=== PATIENT | female | born 1960 | race Two or more races ===

== ENCOUNTER 2021-07-04 19:50 | Emergency (ER) | payer OTHER ==
[~2021-07-04] VITALS: Ht 160 cm; Wt 79.4 kg
[2021-07-04] MEDS ORDERED: SYNTHROID88 MCG (20:03)
[2021-07-04] MEDS ORDERED: ALENDRONATE SODI5 MG (20:04)
[2021-07-04] MEDS ORDERED: TUSNEL LIQUID178 ML PO (22:56)
[2021-07-04] MEDS ORDERED: MEDROLPACK PO (22:56)
== END 2021-07-04 22:59 | disposition home or self-care (01) ==
LOC: ER 19:50
DX: J45.901 Unspecified asthma with (acute) exacerbation (principal); Z20.822 Contact with and (suspected) exposure to COVID-19

== ENCOUNTER 2021-09-27 19:43 | Emergency (ER) | payer OTHER ==
[~2021-09-27] VITALS: Ht 165.1 cm; Wt 74.8 kg
[~2021-09-27 19:43] MED LIST: ALENDRONATE SODI5 MG; MEDROLPACK PO; SYNTHROID88 MCG; TUSNEL LIQUID178 ML PO
== END 2021-09-28 00:24 | disposition home or self-care (01) ==
LOC: ER 19:43
DX: M51.36 Other intervertebral disc degeneration, lumbar region (principal); M48.061 Spinal stenosis, lumbar region without neurogenic claudication; M54.59 Other low back pain; Z88.0 Allergy status to penicillin; Z88.5 Allergy status to narcotic agent; Z88.6 Allergy status to analgesic agent; Z88.8 Allergy status to other drugs, medicaments and biological substances; Z88.9 Allergy status to unspecified drugs, medicaments and biological substances